=== PATIENT | male | born 1945 | race Caucasian/White ===

== ENCOUNTER 2019-08-11 21:08 | Emergency (ER) | payer OTHER ==
[~2019-08-11] VITALS: Ht 170.2 cm; Wt 61.2 kg
[2019-08-11 21:21] VITALS: BP_SYST 138
[2019-08-11] MEDS ORDERED: HYDR-4039 PO (21:42)
[2019-08-11] MEDS ORDERED: METO25TA6 PO (21:42)
[2019-08-11] MEDS ORDERED: FENO135C4 PO (21:42)
[2019-08-11] MEDS ORDERED: ATOR-1 PO (21:42)
[2019-08-11] MEDS ORDERED: CLOP300T2 PO (21:42)
[2019-08-11] MEDS ORDERED: INSU100V9 SQ (21:42)
[2019-08-11] MEDS ORDERED: ACAR100T2 PO (21:42)
[2019-08-11] MEDS ORDERED: POTA20TA83 PO (21:42)
[2019-08-11] MEDS ORDERED: COLC0.6T67 PO (21:42)
[2019-08-11] MEDS ORDERED: PIOG15TA8 PO (21:42)
[2019-08-11] MEDS ORDERED: ASPI-1153 PO (21:42)
[2019-08-11] MEDS ORDERED: EMPA25TA PO (21:42)
[2019-08-11] MEDS ORDERED: EZET10TA30 PO (21:42)
[2019-08-11] MEDS ORDERED: SER25 PO (21:42)
[2019-08-11] MEDS ORDERED: CILO100T PO (21:42)
[2019-08-11 22:10] LABS: BASOPHILS % (AUTO) 0.7 % (0.0-2.0); EOSINOPHILS # (AUTO) 0.5 K/uL (0.0-0.4); EOSINOPHILS % (AUTO) 6.3 % (0.0-4.0); HEMATOCRIT 35.6 % (36-54); HEMOGLOBIN 12.5 g/dL (14.0-18.0); LYMPHOCYTES # (AUTO) 0.8 K/uL (1.0-5.5); LYMPHOCYTES % (AUTO) 10.9 % (20.5-51.5); MEAN CORPUSCULAR HEMOGLOBIN 34 pg (27-31); MEAN CORPUSCULAR HGB CONC 35 % (32-36); MEAN CORPUSCULAR VOLUME 96 fL (79.0-98.0); MONOCYTES # (AUTO) 0.5 K/uL (0.0-1.0); MONOCYTES % (AUTO) 6.8 % (1.7-9.3); NEUTROPHILS # (AUTO) 5.5 K/uL (1.8-7.7); NEUTROPHILS % (AUTO) 75.3 % (40.0-70.0); PLATELET COUNT (AUTO) 353 K/uL (130-430); RED BLOOD CELL COUNT(AUTO) 3.72 MIL/uL (4.2-6.2); RED CELL DISTRIBUTION WIDTH 14.3 % (9.0-15.0); WHITE BLOOD COUNT (AUTO) 7.3 K/uL (4.8-10.8)
[2019-08-11 22:36] LABS: ANION GAP 8 (5-15); CALCIUM 9.1 mg/dL (8.4-11.0); CHLORIDE 104 mmol/L (98-107); CREATININE 1.22 mg/dL (0.55-1.30); GLUCOSE 132 mg/dL (70-99); INR 1.1 (0.80-1.20); POTASSIUM 3.7 mmol/L (3.5-5.1); PROTHROMBIN TIME 11.5 SECS (9.5-12.5); SODIUM SERUM 141 mmol/L (136-145); UREA NITROGEN, BLOOD 39 mg/dL (8-21)
[2019-08-11 22:52] LABS: ALANINE AMINOTRANSFERASE 27 U/L (12-78); ALBUMIN 3.6 g/dL (3.4-4.8); ASPARTATE AMINOTRANSFERASE 33 U/L (10-37); THYROID STIMULATING HORMONE 2.61 uIu/mL (0.36-3.74); TOTAL BILIRUBIN 0.3 mg/dL (0.0-1.0)
[2019-08-11 22:59] LABS: ALCOHOL, BLOOD < 3 mg/dL (<10)
[2019-08-12] MEDS ORDERED: NACL 0.9% 1,000 ML IV ONE
[2019-08-12 01:44] LABS: BILIRUBIN,URINE 1+ (NEGATIVE); BLOOD, URINE 1+ (NEGATIVE); CLARITY/URINE CLOUDY (CLEAR); COLOR,URINE ORANGE (YELLOW); GLUCOSE,URINE NEGATIVE (NEGATIVE); KETONES,URINE TRACE (NEGATIVE); LEUKOCYTE ESTERASE ,URINE 2+ (NEGATIVE); NITRITE, URINE POSITIVE (NEGATIVE); PH,URINE 5.5 (5.0-8.0); PROTEIN URINE 2+ (NEGATIVE); UROBILINOGEN,URINE 0.2 (0.2-1.0)
[2019-08-12 01:55] LABS: BACTERIA,URINE MANY /HPF (None Seen); MUCUS,URINE 3+ /LPF (None Seen); WBC,URINE >100 /HPF (0-3)
[2019-08-12 02:07] LABS: BARBITURATE, URINE POSITIVE (NEG <=200); BENZODIAZEPINE, URINE POSITIVE (NEG <=150)
[2019-08-12 02:08] LABS: CANNABINOID, URINE NEGATIVE (NEG <=50); COCAINE, URINE NEGATIVE (NEG <=150); METHAMPHETAMINES SCREEN,URINE NEGATIVE (NEG <=500); OPIATE, URINE NEGATIVE (NEG <=100); PHENCYCLIDINE SCREEN,URINE NEGATIVE (NEG <=25); UR TRICYCLIC ANTIDEPRESSANTS NEGATIVE (NEG <=300); URINE AMPHETAMINE NEGATIVE (NEG <=500); URINE METHADONE NEGATIVE (NEG <=200); URINE OXYCODONE SCREEN NEGATIVE (NEG <=100); URINE PROPOXYPHENE SCREEN NEGATIVE (NEG <=300)
[2019-08-12] MEDS ORDERED: NITROFURANTOIN MONOHYD/M-CRYST 100 MG CAPSULE PO ONE (02:30)
[2019-08-12 04:03] VITALS: BP_SYST 138
[2019-08-12 15:06] LABS: CHOLESTEROL 127 mg/dL (<200); HDL CHOLESTEROL 27 mg/dL (>45); LDL CHOLESTEROL 71 mg/dL (<100); TRIGLYCERIDES 184 mg/dL (30-150)
== END 2019-08-12 04:03 ==
LOC: SED 21:08
DX: F91.9 Conduct disorder, unspecified (principal); E11.9 Type 2 diabetes mellitus without complications; F03.90 Unspecified dementia, unspecified severity, without behavioral disturbance, psychotic disturbance, mood disturbance, and anxiety; E78.5 Hyperlipidemia, unspecified; N40.0 Benign prostatic hyperplasia without lower urinary tract symptoms; Z86.73 Personal history of transient ischemic attack (TIA), and cerebral infarction without residual deficits; Z88.1 Allergy status to other antibiotic agents; Z79.82 Long term (current) use of aspirin; Z79.899 Other long term (current) drug therapy
CPT/HCPCS: 36415; 71045; 72170; 80053; 80061; 80307; 81000; 83036; 84443; 84484; 85025; 85610; 85730; 87081; 87086; 87186; 93005; 99285; G0482; J7040

== ENCOUNTER 2019-08-19 12:14 | Outpatient (CLI) | payer OTHER ==
[~2019-08-19 12:14] MED LIST: ACAR100T2 PO; ASPI-1153 PO; ATOR-1 PO; CILO100T PO; CLOP300T2 PO; COLC0.6T67 PO; EMPA25TA PO; EZET10TA30 PO; FENO135C4 PO; HYDR-4039 PO; INSU100V9 SQ; METO25TA6 PO; PIOG15TA8 PO; POTA20TA83 PO; SER25 PO
[2019-08-19 13:41] LABS: ANION GAP 9 (5-15); CALCIUM 8.6 mg/dL (8.4-11.0); CHLORIDE 102 mmol/L (98-107); GLUCOSE 290 mg/dL (70-99); POTASSIUM 3.8 mmol/L (3.5-5.1); SODIUM SERUM 137 mmol/L (136-145); UREA NITROGEN, BLOOD 34 mg/dL (8-21)
[2019-08-19 13:42] LABS: ALANINE AMINOTRANSFERASE 108 U/L (12-78); ALBUMIN 2.4 g/dL (3.4-4.8); ASPARTATE AMINOTRANSFERASE 175 U/L (10-37); CREATININE 1.21 mg/dL (0.55-1.30); TOTAL BILIRUBIN 0.4 mg/dL (0.0-1.0); URIC ACID 5.8 mg/dL (2.4-7.0)
== END 2019-08-19 20:47 | disposition home or self-care (01) ==
LOC: SLB 12:14
PROVIDERS: ATTEND Psychiatry & Neurology Psychiatry
DX: Z00.00 Encounter for general adult medical examination without abnormal findings (principal)
CPT/HCPCS: 36415; 80053; 83735-TC; 84550-TC; 85651-TC

== ENCOUNTER 2019-08-20 10:04 | Outpatient (CLI) | payer OTHER | END 2019-08-20 21:09 | disposition home or self-care (01) | LOC: SLB 10:04 | PROVIDERS: ATTEND Psychiatry & Neurology Psychiatry | DX: Z00.00 Encounter for general adult medical examination without abnormal findings (principal) | CPT/HCPCS: 87081 ==

== ENCOUNTER 2019-09-08 15:59 | Outpatient (CLI) | payer MEDICARE, OTHER | END 2019-09-08 20:02 | disposition home or self-care (01) | LOC: SLB 15:59 | PROVIDERS: ATTEND Psychiatry & Neurology Psychiatry | DX: Z00.00 Encounter for general adult medical examination without abnormal findings (principal) | CPT/HCPCS: 87081 ==